=== PATIENT | male | born 1965 | race Caucasian/White ===

== ENCOUNTER 2023-07-24 09:27 | Emergency (ER) | payer BC ==
[2023-07-24 09:32] VITALS: RESP 18; TEMP 97
[2023-07-24] MEDS ORDERED: Reglan 10 MG/2 ML IV ONE (09:34)
[2023-07-24] MEDS ORDERED: Hydromorphone 1 mg/ml Injection IV ONE ×3 (09:34→12:19)
--- NOTE | 2023-07-24 09:43 | ERPHSYRPT ---
- History of Present Illness Time Seen by Provider: 07/24/23 09:35 Source: patient Exam Limitations: no limitations Physician History: Patient is a 57-year-old white male who presents with a complaint of low back pain which started 2 days ago. He had surgery on his right knee several weeks ago then suffered a fall which broke loose all of the previous surgery. The fa ll happened approximately a week ago. And he had surgery on Tuesday. 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 The most recent surgery was to repair the trauma from the fall. A few days after the fall he developed low back pain which radiates into the right hip which she had not noticed as long as he was on morphine. He came in today for his infusion and was in so much pain he had to be brought to the ER. Timing/Duration: day(s) (2) Method of Injury: fall Quality: radiating, sharp, stabbing Back Pain Location: lumbar spine Back Pain Radiation: buttocks (Right buttock) Severity of Pain-Max: severe Severity of Pain-Current: severe Modifying Factors: Improves With: movement, pain medication (Morphine helps whi le pills do not seem to.) Associated Symptoms: nausea Previous symptoms: same symptoms as today Allergies/Adverse Reactions: Tetanus Vaccines and Toxoid [Tetanus Vaccines & Toxoid] Allergy (Severe, Verified 07/24/23 09:28) Shortness of Breath Sulfa (Sulfonamide Antibiotics) Allergy (Verified 07/24/23 09:28) Home Medications: Hydrocodone/Acetaminophen [Hydrocodone-Acetamin 7.5-325] 1 tab PO Q6H PRN PRN 06/20/23 [History] Ceftriaxone Sod 1000 mg Inj [Rocephin 1000 MG INJ] 1,000 mg IJ DAILY 07/24/23 [History] - Review of Systems Constitutional: No Fever, No Chills Eyes: No Symptoms Ears, Nose, & Throat: No Symptoms Respiratory: No Cough, No Dyspnea Cardiac: No Chest Pain, No Edema, No Syncope Abdominal/Gastrointestinal: No Abdominal Pain, No Nausea, No Vomiting, No Diarrhea Genitourinary Symptoms: No Dysuria Musculoskeletal: Back Pain, Joint Pain, No Neck Pain Skin: No Rash Neurological: No Dizziness, No Focal Weakness, No Sensory Changes Psychological: No Symptoms Endocrine: No Symptoms All Other Systems: Reviewed and Negative - Past Medical History Pertinent Past Medical History: Yes Neurological History: No Pertinent History ENT History: No Pertinent History Cardiac History: No Pertinent History Respiratory History: No Pertinent History Endocrine Medical History: No Pertinent History Musculoskeletal History: Fractures GI Medical History: No Pertinent History History: No Pertinent History Psycho-Social History: Other Male Reproductive Disorders: No Pertinent History Other Medical History: right leg fx at young age with fall skating,arm fx by kick of cow right shoulder, right ankle fx. - Past Surgical History Past Surgical History: Yes Neuro Surgical History: No Pertinent History Cardiac: No Pertinent History Respiratory: No Pertinent History Gastrointestinal: No Pertinent History Genitourinary: No Pertinent History Musculoskeletal: Orthopedic Surgery Male Surgical History: No Pertinent History Other Surgical History: L knee arthroscopy X2. right knee tendon surgery. tendon repair - Social History Smoking Status: Current every day smoker How long have you smoked: 40 Exposure to second hand smoke: Yes Drug Use: none - Nursing Vital Signs Nursing Vital Signs: Initial Vital Signs Blood Pressure 129/79 07/24/23 09:31 Pain Scale Pain Intensity [Right Back] 10 Pain Intensity 6 - Physical Exam General Appearance: moderate distress, alert Eye Exam: PERRL/EOMI, eyes nml inspection Ears, Nose, Throat Exam: normal ENT inspection Neck Exam: normal inspection, non-tender, supple, full range of motion, No meningismus, No midline tenderness Respiratory Exam: normal breath sounds, lungs clear, No respiratory distress Cardiovascular Exam: regular rate/rhythm, normal heart sounds Gastrointestinal Exam: soft, No tenderness, No mass Back Exam: vertebral tenderness, decreased range of motion, muscle spasm Extremity Exam: other (Right lower extremity is in a full leg cast), No calf tenderness, No pedal edema Neurologic Exam: alert, oriented x 3, cooperative, 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, normal mood/affect, nml station & gait, sensation nml, No motor deficits Skin Exam: normal color, warm, dry, No rash SpO2 Interpretation: normal SpO2: 99 O2 Delivery: Room Air - Course Nursing assessment & vital signs reviewed: Yes - CT Exams Lumbar Spine CT Interpretation: Tele-radiologist Report Abdomen/Pelvis CT Interpretation: Tele-radiologist Report Lower Extremity CT Interpretation: Tele-radiologist Report Ordered Tests: Active Orders 24 hr Category Date Time Status IV Insertion STAT Care 07/24/23 09:34 Active ABDOMEN AND PELVIS W/0 CONTRAS [CT] Routine Exams 07/24/23 10:29 Completed LOWER EXTREMITY WO CONTRAST [CT] Stat Exams 07/24/23 10:36 Completed LUMBAR SPINE W/O [CT] Stat Exams 07/24/23 10:32 Completed CBC W DIFF Stat Lab 07/24/23 09:45 Completed CMP Stat Lab 07/24/23 09:45 Completed Lactic Acid Stat Lab 07/24/23 09:52 Completed SED RATE [Erythrocyte Sedimentation Rate] Stat Lab 07/24/23 09:45 Completed UA W/RFX UR CULTURE Stat Lab 07/24/23 09:41 Ordered Medication Summary Discontinued Medications Generic Name Dose Route Start Last Admin Trade Name Freq PRN Reason Stop Dose Admin Hydromorphone HCl 1 mg 07/24/23 09:34 07/24/23 09:50 Hydromorphone 1 Mg/1ml Inj IV 07/24/23 09:35 1 mg STAT ONE Administration Hydromorphone HCl Confirm 07/24/23 09:48 Hydromorphone 1 Mg/1ml Inj Administered 07/24/23 09:49 Dose 1 mg .ROUTE .STK-MED ONE Hydromorphone HCl 1 mg 07/24/23 11:42 07/24/23 11:46 Hydromorphone 1 Mg/1ml Inj IV 07/24/23 11:43 1 mg STAT ONE Administration Hydromorphone HCl Confirm 07/24/23 11:44 Hydromorphone 1 Mg/1ml Inj Administered 07/24/23 11:45 Dose 1 mg .ROUTE .STK-MED ONE Metoclopramide HCl 10 mg 07/24/23 09:34 07/24/23 09:50 Metoclopramide Hcl 10 Mg/2 Ml Vial IV 07/24/23 09:35 10 mg STAT ONE Administration Metoclopramide HCl Confirm 07/24/23 09:48 Metoclopramide Hcl 10 Mg/2 Ml Vial Administered 07/24/23 09:49 Dose 10 mg .ROUTE .STK-MED ONE Lab/Rad Data: Laboratory Result Diagrams 07/24/23 09:45 07/24/23 09:45 Laboratory Results 07/24/23 07/24/23 07/24/23 Range/Units 09:52 09:45 09:45 WBC (4.0-10.5) x10^3/uL RBC (4.1-5.6) x10^6/uL Hgb (12.5-18.0) g/dL Hct (42-50) % MCV (78-100) fL MCH (26-32) pg MCHC (32-36) g/dL RDW (11.5-14.0) % Plt Count (150-450) x10^3/uL MPV (7.5-11.0) fL Gran % (36.0-66.0) % Immature Gran % (Auto) (0.00-0.4) % Nucleat RBC Rel Count (0.00-0.1) % Eos # (Auto) (0-0.5) x10^3/uL Immature Gran # (Auto) (0.00-0.03) x10^3u/L Absolute Lymphs (auto) (1.0-4.6) x10^3/uL Absolute Monos (auto) (0.0-1.3) x10^3/uL Absolute Nucleated RBC (0.00-0.01) x10^3u/L Lymphocytes % (24.0-44.0) % Monocytes % (0.0-12.0) % Eosinophils % (0.00-5.0) % Basophils % (0.0-0.4) % Absolute Granulocytes (1.4-6.9) x10^3/uL Basophils # (0-0.4) x10^3/uL ESR 17 H (0-15) mm/hr Sodium 135 L (137-145) mmol/L Potassium 4.0 (3.5-5.1) mmol/L Chloride 102 (98-107) mmol/L Carbon Dioxide 24 (22-30) mmol/L Anion Gap 13.3 (5-15) MEQ/L BUN 19 (9-20) mg/dL Creatinine 0.70 (0.66-1.25) mg/dL Estimated GFR 106.1 ML/MIN Glucose 102 (74-106) mg/dL Lactic Acid 1.4 (0.4-2.0) Calcium 9.0 (8.4-10.2) mg/dL Total Bilirubin 0.70 (0.2-1.3) mg/dL AST 30 (17-59) U/L ALT 21 (0-50) U/L Alkaline Phosphatase 98 (38-126) U/L Serum Total Protein 6.6 (6.3-8.2) g/dL Albumin 3.6 (3.5-5.0) g/dL 07/24/23 Range/Units 09:45 WBC 5.2 (4.0-10.5) x10^3/uL RBC 4.45 (4.1-5.6) x10^6/uL Hgb 13.9 (12.5-18.0) g/dL Hct 41.5 L (42-50) % MCV 93.3 (78-100) fL MCH 31.2 (26-32) pg MCHC 33.5 (32-36) g/dL RDW 13.5 (11.5-14.0) % Plt Count 185 (150-450) x10^3/uL MPV 10.2 (7.5-11.0) fL Gran % 55.9 (36.0-66.0) % Immature Gran % (Auto) 0.6 H (0.00-0.4) % Nucleat RBC Rel Count 0.0 (0.00-0.1) % Eos # (Auto) 0.38 (0-0.5) x10^3/uL Immature Gran # (Auto) 0.03 (0.00-0.03) x10^3u/L Absolute Lymphs (auto) 1.26 (1.0-4.6) x10^3/uL Absolute Monos (auto) 0.60 (0.0-1.3) x10^3/uL Absolute Nucleated RBC 0.00 (0.00-0.01) x10^3u/L Lymphocytes % 24.1 (24.0-44.0) % Monocytes % 11.5 (0.0-12.0) % Eosinophils % 7.3 H (0.00-5.0) % Basophils % 0.6 (0.0-0.4) % Absolute Granulocytes 2.93 (1.4-6.9) x10^3/uL Basophils # 0.03 (0-0.4) x10^3/uL ESR (0-15) mm/hr Sodium (137-145) mmol/L Potassium (3.5-5.1) mmol/L Chloride (98-107) mmol/L Carbon Dioxide (22-30) mmol/L Anion Gap (5-15) MEQ/L BUN (9-20) mg/dL Creatinine (0.66-1.25) mg/dL Estimated GFR ML/MIN Glucose (74-106) mg/dL Lactic Acid (0.4-2.0) Calcium (8.4-10.2) mg/dL Total Bilirubin (0.2-1.3) mg/dL AST (17-59) U/L ALT (0-50) U/L Alkaline Phosphatase (38-126) U/L Serum Total Protein (6.3-8.2) g/dL Albumin (3.5-5.0) g/dL - Progress Progress: improved, pain not gone completely Medical Desision Making - Independent Historian Additional History obtained from: Spouse - Diagnostic Testing Diagnostic test were ordered, analyzed, and reviewed by me: Yes Radiological Interpretation: Reviewed by me - Risk of complications Low Risk: Low risk of morbidity from additional dx testing or treatment - Departure Departure Disposition: Home Clinical Impression: Lumbar radiculopathy, acute, Diverticulitis Condition: Stable Critical Care Time: No Referrals: DOCTOR,NO FAMILY [Primary Care Provider] - Follow up/PCP as directed Instructions: Low Back Pain (DC), Sciatica (DC), Diverticulitis (DC) Prescriptions: Metronidazole 500 mg [Flagyl 500 MG] 500 mg PO TID #21 tablet
[2023-07-24] MEDS ORDERED: Reglan 10 MG/2 ML ONE (09:48)
[2023-07-24] MEDS ORDERED: Hydromorphone 1 mg/ml Injection ONE ×3 (09:48→12:21)
[2023-07-24 09:52] LABS: Absolute Neutrophil Ct (ANC) 2.93 x10^3/uL (1.4-6.9); BASOPHIL % 0.6 % (0.0-0.4); Basophil (Absolute #) 0.03 x10^3/uL (0-0.4); Eosinophil % 7.3 % (0.00-5.0); Eosinophil (Absolute #) 0.38 x10^3/uL (0-0.5); Hematocrit 41.5 % (42-50); Hemoglobin 13.9 g/dL (12.5-18.0); IMMATURE GRAN # 0.03 x10^3u/L (0.00-0.03); IMMATURE GRAN % 0.6 % (0.00-0.4); Lymphocyte (Absolute #) 1.26 x10^3/uL (1.0-4.6); Lymphocytes % 24.1 % (24.0-44.0); Mean Cell Volume 93.3 fL (78-100); Mean Corpuscular Hemoglobin 31.2 pg (26-32); Mean Corpuscular Hgb Concent. 33.5 g/dL (32-36); Mean Platelet Volume 10.2 fL (7.5-11.0); Monocytes % 11.5 % (0.0-12.0); Neutrophil % 55.9 % (36.0-66.0); Platelet Count 185 x10^3/uL (150-450); Red Blood Count 4.45 x10^6/uL (4.1-5.6); Red Cell Distribution Width 13.5 % (11.5-14.0); White Blood Count 5.2 x10^3/uL (4.0-10.5)
[2023-07-24 10:07] LABS: ALBUMIN 3.6 g/dL (3.5-5.0); ANION GAP 13.3 MEQ/L (5-15); BILIRUBIN,TOTAL 0.7 mg/dL (0.2-1.3); Creatinine 1 0.7 mg/dL (0.66-1.25); EST GLOMERULAR FILTRATION RATE 106.1 ML/MIN; Total Protein 6.6 g/dL (6.3-8.2)
--- NOTE | 2023-07-24 11:30 | XRAY ---
CLINICAL HISTORY:pain after fall COMPARISON:None TECHNIQUE:CT scan of lumbar spine done without contrast. Axial images were obtained with reformatted coronal and sagittal images and submitted for interpretation. FINDINGS: Preserved physiological lumbar lordosis. Normal vertebral bodies height and alignment. Lumbar vertebral marginal osteophytes are noted. Intact vertebral bodies and neural arches. No definite fractures could be detected. No retro paraspinal soft tissue masses. No developmental canal stenosis. L1-L2, L2-L3 and L4-L5 vertebral endplates sclerosis. L2-L3 and L5-L5 posterior disc bulges, indenting the ventral thecal surface and compromising the neural foramina bilaterally. Calcification/ossification of the supraspinatus ligament. Posterior midline subcutaneous edema. IMPRESSION: 1. No definite fractures, subluxation or dislocation. 2. Lumbar spondylodegenerative changes with L1-L2, L2-L3 and L4-L5 disc bulges and associated neurological effects as described. Electronically Signed by: Fili Azul MD. (07/24/2023 10:28:58 WASHER REPAIRMAN)
--- NOTE | 2023-07-24 11:40 | XRAY ---
CLINICAL HISTORY:pain after fall COMPARISON:None TECHNIQUE:Spiral axial continuous cuts were taken through the right hip joint with multiplanar reformatting and without contrast administration. FINDINGS: No evidence of acute osseous fractures. There is cortical irregularity and small calcifications at the right anterior inferior iliac spine with atrophic changes of the proximal part of the right rectus femoris muscle, findings could be degenerative changes or sequlae of previous avulsion injury. Mild degenerative changes at the right hip joint. Mild cortical irregularity with small calcifications at the right ischial tuberosity and iliac bones. No evidence of osteolytic or sclerotic osseous lesion. No destructive bony lesion. Intact right hip joint with no evidence of subluxation or dislocation. Normal CT appearance of the femoral head with normal spherical contour. No evidence of intra-capsular or nichelle-articular fluid collections. Normal CT appearance of the rest of the surrounding muscle groups and intermuscular fat planes. IMPRESSION: 1. No evidence of acute osseous fractures. 2. There is cortical irregularity and small calcifications at the right anterior inferior iliac spine with atrophic changes of the proximal part of the right rectus femoris muscle, findings could be degenerative changes or sequelae of previous avulsion injury. Clinical correlation is advised. 3. Mild degenerative changes at the right hip joint. 4. Mild cortical irregularity with small calcifications at the right ischial tuberosity and iliac bones. Electronically Signed by: Fili Azul MD. (07/24/2023 10:39:41 COLLISION REPAIRER)
--- NOTE | 2023-07-24 11:56 | XRAY ---
CLINICAL HISTORY:ABD PAIN COMPARISON:None. TECHNIQUE:CT scan of the abdomen and pelvis without intravenous contrast administration. FINDINGS: Few small diverticula are seen related to the sigmoid colon with associating focal diffuse wall thickening and surrounding minimal fat stranding suggestive of possible acute diverticulitis. Associating free air or fluid collection The liver is of average size, regular contour and homogeneous texture with no focal lesion could be detected on a non-contrast basis. No intra hepatic biliary radical dilatation. The GB is surgically removed. The spleen is of average size and shape with homogeneous parenchyma and no focal lesion could be noted on a non-contrast basis. Both kidneys are of normal size, shape and parenchymal thickness with no stones, back pressure changes or space-occupying lesions on a non-contrast basis. The other retroperitoneal structures including the pancreas and adrenal glands are grossly within normal limits. No significant lymph chau enlargement or ascetic fluid collection. The prostate is of average size and shape. There are foci of calcification inside. Inadequate filling of the urinary bladder with no stones, masses, or diverticula. Bone window settings showed degenerative changes of the lumbar spine wtih no evidence of fractures or destructive lesions. Lung window settings showed normal appearance of both basal lung segments. IMPRESSION: 1. Possible sigmoid diverticulitis as described. Please correlate clinically. 2. [employer], unremarkable study. 3. No evidence of acute findings. 4. Electronically Signed by: Fili Azul MD. (07/24/2023 10:55:58 HOTEL BAGGAGE HANDLER)
[2023-07-24 12:40] VITALS: BP 108/68; PULSE 70; O2SAT 98
== END 2023-07-24 12:39 | disposition home or self-care (01) ==
LOC: ED 09:27
DX: M54.16 Radiculopathy, lumbar region (principal); K57.92 Diverticulitis of intestine, part unspecified, without perforation or abscess without bleeding; M54.50 Low back pain, unspecified; Z79.891 Long term (current) use of opiate analgesic; Z72.0 Tobacco use
CPT/HCPCS: 36415; 72131; 73700; 74176; 80053; 83605; 85025; 85652; 96374; 96375; 96376; 99284; J1170; J1642